=== PATIENT | female | born 1985 | race Caucasian/White ===

== ENCOUNTER 2017-02-14 09:08 | Inpatient (IN) | payer OTHER ==
[~2017-02-14] VITALS: Ht 175.3 cm; Wt 86.2 kg
[2017-02-14] MEDS ORDERED: Oxytocin 30 Units/500 mL LR Premix IV ONE (09:28)
[2017-02-14] MEDS ORDERED: Lactated Ringer's 1,000 ML IV PRN (09:31)
[2017-02-14] MEDS ORDERED: Sodium Chloride LOK Flush 10 mL Syringe IVFLUSH PRN (09:35)
[2017-02-14] MEDS ORDERED: Oxytocin 30 Units/500 mL LR 30 UNITS in IV Premix 1 EACH IV PRN ×2 (09:35→10:20)
[2017-02-14] MEDS ORDERED: Carboprost 250 mCg/mL Inj IM PRN ×2 (09:35→10:20)
[2017-02-14] MEDS ORDERED: Oxytocin 10 Unit/mL Inj IM PRN ×2 (09:35→10:20)
[2017-02-14] MEDS ORDERED: Hemorrhage Kit, Post Partum XX ONE ×2 (09:35→10:20)
[2017-02-14] MEDS ORDERED: Methylergonovine 0.2 mg/mL Inj IM PRN ×2 (09:35→10:20)
[2017-02-14 09:51] LABS: Mean Corpuscular Hemoglobin 31.7 pg (27.0-35.0); Mean Corpuscular Volume 92.4 fL (81-100)
[2017-02-14] MEDS ORDERED: Lactated Ringer's 1,000 ML IV SCH (10:17)
[2017-02-14] MEDS ORDERED: Witch Hazel-Glycerin Pads TOPICAL PRN (10:20)
[2017-02-14] MEDS ORDERED: LANOlin HPA 7 Gm Ointment TOPICAL PRN (10:20)
[2017-02-14] MEDS ORDERED: oxyCODONE-Acetamin 5-325 mg Tablet PO PRN (10:20)
[2017-02-14] MEDS ORDERED: Benzocaine (Dermoplast) 20% 60 Gm Spray TOPICAL PRN (10:20)
--- NOTE | 2017-02-14 11:15 | HP ---
[address] [address] HISTORY AND PHYSICAL PATIENT: ENOC ESCUDERO : 1985 MR#: [id number] ADMIT: 02/14/2017 JOB ID: [id number] ADMISSION AND PRECIPITOUS LABOR REPORT: ADMISSION DIAGNOSIS: Active labor at term with precipitous delivery. HISTORY OF PRESENT ILLNESS: The patient is 32 years old, 3, para 1-0-1-1, at 39 weeks and 1 day gestational age by LMP, confirmed by six-week ultrasound. Had her complicated with the followin. History of depression. No meds. 2. Rh negative. Received RhoGAM on November 24, 2016. 3. History of SAB, with no D and C. 4. Left corpus luteum cyst, 1.8 x 1.8 x 1.7 cm. 5. Father of the baby a carrier of gene. 6. Nuchal translucency was 1.3 mm. 7. Couple declined testing. The patient presented to triage with 9 cm dilated cervix, and had monitoring from 9:22 a.m. to 9:47 a.m. when she had a precipitous delivery. PAST OBSTETRICAL HISTORY: In 2013, 12-week ended with spontaneous . Treated medically with Cytotec. In 2015, 39 weeks and 1 day, spontaneous vaginal delivery of a male, 6 pounds 10 ounces, in [place]. She had induction of labor for social reasons. The current . PAST GYNECOLOGIC HISTORY: No history of STDs. No history of abnormal Pap smears. PAST MEDICAL HISTORY: Depression. No current meds. Rh negative status. PAST SURGICAL HISTORY: Shafter tooth extraction. ALLERGIES: To SEPTRA with mouth blisters. MEDICATIONS: vitamins. SOCIAL HISTORY: Denied any alcohol consumption. Denied any drugs of abuse. Denied any cigarette smoking. FAMILY HISTORY: Insignificant for twinning or congenital anomalies. LABORATORIES: VERA negative. Antibodies negative. Rubella immune. Serology nonreactive. Hepatitis B surface antigen negative. HIV nonreactive. Gonorrhea and chlamydia cultures negative on July 25, 2016. Pap smear, negative cytology on July 25, 2016. GBS cultures negative on January 30, 2017. Diabetes screen at 27 weeks, 1 hour test was 77, within normal limits. PHYSICAL EXAMINATION: Patient is alert, oriented x3. Vital signs are 127/60 blood pressure, respirations are 18, pulse 75, temperature 36.1 degrees centigrade. Heart is regular rate and rhythm. Positive S1, S2. Lungs clear to auscultation bilaterally. Abdomen: Gravid uterus. Lower extremities: No calf tenderness appreciated bilaterally. Cervical exam is fully dilated cervix, +3 station. The patient proceeded with a precipitous delivery. heart tracing from 09 to 09 showed a heart tracing baseline of 140 beats per minute with accelerations, moderate variability, interrupted tracing. Difficult to interpret whether there were decelerations or no. PRECIPITOUS DELIVERY NOTE: The patient pushed efficiently. had a spontaneous vaginal delivery in a precipitous fashion in left occiput anterior position, followed by shoulders and rest of the body. Delayed cord clamping allowed for 60 seconds. placed over mom's chest. Placenta followed spontaneously. Upon inspection, it was noted to be intact with three-vessel cord centrally inserted. Inspection of perineum revealed a first-degree perineal laceration at 6 o'clock that had 10 cc of 1% lidocaine injected for local analgesia and repaired with 2-0 Vicryl suture. Good hemostasis assured. The patient did not have any intrapartum analgesia considering the precipitous labor fashion, and she only had local analgesia for repair of first-degree laceration. FINDINGS: Single viable female infant with Apgars 9/9, weight is still pending. ESTIMATED BLOOD LOSS: 200 cc. ASSESSMENT AND PLAN: The patient is a 32-year-old, 3, para 2-0-1-2, day #0, status post precipitous vaginal delivery. Afebrile with stable vital signs. Good hemostasis. Sponge, needle and instrument counts were correct x2. Mom and baby recovering in stable condition. Dr. Wilson was present and scrubbed for the entire delivery. Will start care.
[2017-02-14] MEDS: Ascorbic Acid 500 mg Tablet PO SCH (19:39)
[2017-02-15 07:06] LABS: Mean Corpuscular Hemoglobin 32.4 pg (27.0-35.0); Mean Corpuscular Volume 95.2 fL (81-100)
[2017-02-15] MEDS: Ascorbic Acid 500 mg Tablet PO SCH (08:38)
[2017-02-15] MEDS ORDERED: IBUP-1827 PO (13:17)
[2017-02-15] MEDS ORDERED: DOCU-41 PO (13:17)
--- NOTE | 2017-02-15 13:17 | PCM.DIOB ---
Obstetrical Disch Instruction Date of Service: Feb 15, 2017 Dates of Hospitalization Date of Hospital Admission Feb 14, 2017 at 09:18 Providers Admitting Physician: Billie Wilson MD Primary Care Physician: Nopcp Attending Physician: Billie Wilson MD Discharge Diagnosis Discharge Diagnosis PPD#1 S/P Problems: Diet Discharge Diet: No restrictions Activity Discharge Activity-General: Pelvic Rest for 6 weeks, No lifting >10 pounds for 4-6 weeks Dressing and Incisional Care Hygiene: May shower Follow Up Plan Follow-up Provider (F9): Billie Wilson MD Follow-up appointment: Weeks (2) Call your provider for: Fever or Chills, Shortness of breath, Heavy vaginal bleeding, Other (xcessive pain not controled with pain medications.) Billie Wilson MD Feb 15, 2017 13:16
--- NOTE | 2017-02-15 13:47 | DIS ---
[address] [address] DISCHARGE SUMMARY PATIENT: ENOC ESCUDERO : 1985 MR#: [id number] ADMIT: 02/14/2017 JOB ID: [id number] DIS: 02/15/2017 DISCHARGE DIAGNOSIS: day #1, status post spontaneous vaginal delivery. HOSPITAL COURSE: For further details, please refer to the fully dictated notes. On the day of discharge, the patient had no complaints. Voiding, ambulating, tolerating p.o. intake, with no difficulties. OBJECTIVE: Vital signs are 106/62 for blood pressure. Respirations are 16. Pulse is 68, temperature 36.6 degrees centigrade. Heart is regular rate and rhythm. Positive S1, S2. Lungs clear to auscultation bilaterally. Abdomen firm. Uterine fundus palpated at 2 cm below the umbilicus. Nontender. Positive bowel sounds. Nondistended abdomen. Perineum: No active bleeding. Lower extremities: No calf tenderness appreciated bilaterally. LABORATORY DATA: H and H this morning is 11.4 and 33.5, platelets are 182. White blood count is 13.8. DISCHARGE PLAN: Patient will be discharged home in a stable condition. Will follow up with Dr. Wilson in the office in two weeks. Instructed to have nothing in the vagina for six weeks. No heavy lifting more than baby's weight. Instructed to call for fever, chills, severe abdominal pain uncontrolled with medication, heavy vaginal bleeding, or any other concerning symptoms. DISCHARGE MEDICATIONS: 1. Ibuprofen 600 mg q.6 hours as needed for pain. 2. Colace 100 mg twice a day to avoid constipation. 3. Instructed to continue with her vitamins. All the above was discussed with the patient who agreed to the plan.
[2017-02-15 13:58] VITALS: BP 106/62; PULSE 66; RESP 16
== END 2017-02-15 14:45 | disposition home or self-care (01) | DRG 775 ==
LOC: FBCO 09:08 → FBC 09:18
PROVIDERS: ADMIT Obstetrics & Gynecology; ATTEND Obstetrics & Gynecology
PROC: 10E0XZZ Delivery of Products of Conception, External Approach (ICD-10-PCS; principal; 2017-02-14)
PROC: 0HQ9XZZ Repair Perineum Skin, External Approach (ICD-10-PCS; 2017-02-14)
DX: O62.3 Precipitate labor (principal); O70.0 First degree perineal laceration during delivery; Z3A.39 39 weeks gestation of pregnancy; Z37.0 Single live birth